=== PATIENT | male | born 1950 | race Caucasian/White ===

== ENCOUNTER 2016-10-18 21:21 | Inpatient (IN) | payer MEDICARE, OTHER ==
[2016-10-18] MEDS ORDERED: SODIUM CHLORIDE 0.9% 10 ML FLUSH FLUSH PRN (21:41)
--- NOTE | 2016-10-18 21:42 | EDPRACDOC ---
- General Information Information Source: Patient - History of Present Illness Onset: THIS MORNING HPI: C/o feeling nauseous and "not right" yesterday, then today, per , around 4pm pt suddenly couldn't get up, and c/o new left side weakness. Pt also coughed up blood today, but has hx of coughing up blood which has been evaluated without clear dx per pt. Also c/o not eating in 2 days, and drinking very little. Denies cp, sob, fever, changes in urine, BM. Supposed to take 2 lasix but has only take one today. Takes oxycodone for chronic pain but also added a vicodin from 's rx today. Pt also states he has run out of daily prednisone x 1week. BGL 201 by EMS. Med hx = Afib, HTN, CVA, CHF, DM. Pt on xarelto. SURGICAL HX = LAP BAND 3-4 YRS AGO, HERNIA, MAYRA, VENOUS ABLATION. Pt on XARELTO. Symptoms Started: Reports: Suddenly Symptoms Description: Constant Weakness: Left: Arm, Leg <Dawson Bryant - Last Filed: 10/19/16 00:45> <Heather Girard - Last Filed: 10/19/16 06:23> - General Information Chief Complaint: Generalized Weakness Stated Complaint: WEAKNESS Home Medications: Home Medications Albuterol Sulfate [Ventolin Hfa] 1 - 2 puff INH Q4H PRN 04/29/14 Atorvastatin [Lipitor 40 mg Tablet] 40 mg PO DAILY 04/29/14 Diltiazem HCl [Cardizem] 30 mg PO BID 04/29/14 Fluticasone/Salmeterol [Advair 500-50 Diskus] 1 inh INH BID 04/29/14 Insulin Aspart [Novolog Flexpen] 0 unit SQ .INSULIN PUMP 04/29/14 Isosorbide Mononitrate [Imdur] 60 mg PO DAILY 04/29/14 Magnesium Oxide [Mag-Ox] 800 mg PO BID 04/29/14 Pantoprazole Sodium [Protonix] 40 mg PO BID 04/29/14 Famotidine [Pepcid] 20 mg PO QHS 05/21/16 Latanoprost [Xalatan] 1 drop OU QHS 05/21/16 Naloxegol Oxalate [Movantik] 25 mg PO DAILY 05/21/16 HydrALAZINE (Cardiovascular) [Apresoline] 50 mg PO TID #60 05/25/16 Losartan Potassium [Cozaar] 100 mg PO DAILY #30 tab 05/25/16 Oxycodone (OxyCONTIN) Ext Rel [Oxycontin] 20 mg PO BID #60 05/25/16 POTASSIUM CHLORIDE Tablet [K-DUR 20 mEq Tablet*] 20 meq PO TID #100 tab.er.prt 05/25/16 Azelastine HCl [Astelin] 1 - 2 spray ROC DAILY 10/18/16 Driver Unknown Dose 1 tab PO .SEE COMMENTS 10/18/16 Prednisone 10 mg PO DAILY 10/18/16 Pregabalin [Lyrica] 75 mg PO BID 10/18/16 Probiotic Blend [Sandra Q] 1 tab PO BID 10/18/16 Rivaroxaban [Xarelto] 15 mg PO DAILY 10/18/16 Torsemide [Demadex] 20 mg PO QID 10/18/16 Allergies/Adverse Reactions: Allergies Allergy/AdvReac Type Severity Reaction Status Date / Time Penicillins Allergy Intermediate Rash-Genera Verified 10/19/16 00:40 lized codeine [Codeine] Allergy Mild Itching Verified 10/19/16 00:40 ED Past Medical History - Patient Medical History Neurological History: Reports: Cerebrovascular Accident (X3) Cardiac History: Reports: Atrial Fibrillation, Hypertension, Congestive Heart Failure, Hypercholesterolemia Respiratory History: Reports: Asthma, Emphysema GI/ History: Reports: Renal Disease (CKD stage III), Gastroesophageal Reflux Musculoskeletal History: Reports: Arthritis Psychological History: Reports: Substance Use Disorder (quit alcohol 9 years ago ). Denies: Depression Systemic History: Reports: Diabetes, Hypothyroidism Surgical History: Reports: Cholecystectomy, Hernia Surgery - Family Medical History Reports: Hypertension (Dad), Diabetes (Sister), Cancer (Mother) - Social Medical History Smoking Status: Former smoker Social History: Reports: Substance Use Disorder (quit alcohol 9 years ago) <Dawson Bryant - Last Filed: 10/19/16 00:45> - Physical Exam Last recorded Vital Signs: Last Vital Signs Temp 99.9 F 10/18/16 21:28 Pulse 88 10/18/16 21:28 Resp 18 10/18/16 21:28 BP 121/61 10/18/16 21:28 Pulse Ox 96 10/18/16 21:28 Oxygen Pulse Oxygen Saturation 96 O2 Device Room Air Oxygen Flow Rate Fraction of Inspired Oxygen ( FIO2) <Dawson Bryant - Last Filed: 10/19/16 00:45> - Physical Exam Constitutional: No apparent distress, Alert Oriented to: Time, Person, Place Last recorded Vital Signs: Last Vital Signs Temp 98.7 F 10/18/16 22:00 Pulse 88 10/19/16 01:28 Resp 20 10/19/16 01:28 BP 156/77 10/19/16 01:28 Pulse Ox 94 10/19/16 01:28 Oxygen Pulse Oxygen Saturation 94 O2 Device Room Air Oxygen Flow Rate Fraction of Inspired Oxygen ( FIO2) - HEENT Head: Normal Eye Exam: Normal Oropharynx: Normal Nose: No Symptoms Reported Neck: Normal - Respiratory/Cardiovascular Respiratory: Rales, Rhonchi, Wheezes. negative: Tachypnea Cardiovascular: Normal - GI Auscultation: Normal Palpation: Normal Tenderness: Non tender Velasquez's Sign: Negative - Bladder: Normal - Musculoskeletal Back: Normal Extremities: Normal. negative: Pedal Edema, Pedal Pulse - Integumentary Skin: Normal, Warm, Dry Lymphatics: Normal - Neurologic Memory Impaired: Normal Motor Function: Abnormal Mood Description: Anxious Thought: Coherent <Heather Girard - Last Filed: 10/19/16 06:23> NIH Stroke Scale Re-evaluation 1 Level of Consciousness: Alert LOC- Question: Answers Both Correctly LOC Commands: Both Task Correctly Best Gaze: Normal Visual: No Visual Loss Facial Palsy: Normal Movement Motor Arm LEFT: Drift Motor Arm RIGHT: No Drift Motor Leg LEFT: Drift Motor Leg RIGHT: No Drift Limb Ataxia: Present in Two Limbs Best Language: No Aphasia Dysarthria: Normal Extinction and Inattention: No Abnormality (Neglect) <Heather Girard - Last Filed: 10/19/16 06:23> ED Procedures - Central Line Informed of risks, benefits and alternatives described.: Yes Central Line Informed Consent Signed: Written Indication: Medication Administration, No peripheral access Line Procedure: Chlorahexadine Equipment used during procedure: Hat and Mask, Sterile Gown, Sterile Gloves Line Lumen: triple Central Line Postion: femoral (R) (ULTRASOUND GUIDED, WIRE CONFIRMED PRIOR TO DILATION) Anesthesia: Lidocaine Line Position approached and secured by standard fashion: sutured, good blood return Complications: none <Heather Girard - Last Filed: 10/19/16 06:23> - Results 10/18/16 22:14 10/18/16 23:56 - EKG EKG #1 EKG Time: 22:03 -: Yes EKG interpreted by me Rate: bpm: 87 Laughlin: RAD Rhythm: Afib Block: None ST: Nonsp Comments: new t wave inversion in V6 compared to prior ekg Comparison: 06/21/16 - Diagnostic Imaging Chest Image interpreted by: Radiologist EXAM: PORTABLE CHEST 1 VIEW COMPARISON: Chest x-ray 09/10/2016. FINDINGS: Opacity in the lower left hemithorax is compatible with an area of chronic scarring as demonstrated on prior chest CT. Ill-defined opacity in the medial aspect of the right lung base, concerning for bronchopneumonia, favored to be within the right middle lobe. No definite pleural effusions. Heart size is mildly enlarged. The patient is rotated to the left on today's exam, resulting in distortion of the mediastinal contours and reduced diagnostic sensitivity and specificity for mediastinal pathology. Atherosclerosis in the thoracic aorta. IMPRESSION: 1. Findings are concerning for probable right middle lobe bronchopneumonia. Followup PA and lateral chest X-ray is recommended in 3-4 weeks following trial of antibiotic therapy to ensure resolution and exclude underlying malignancy. 2. Chronic scarring in the left lung redemonstrated, similar to prior studies. 3. Atherosclerosis. Electronically Signed By: Marv Randolph M.D. On: 10/18/2016 23:20 - Additional Information Care of pt handed over to Dr Girard at this time. <Dawson Bryant - Last Filed: 10/19/16 00:45> - Results 10/18/16 22:14 10/18/16 23:56 WBC 10.6 xk/uL (3.8-10.8) 10/18/16 22:14 RBC 4.87 xM/uL (4.70-6.10) 10/18/16 22:14 Hgb 12.9 g/dL (14.0-18.0) L 10/18/16 22:14 Hct 39.4 % (42-52) L 10/18/16 22:14 MCV 81 fL (80-94) 10/18/16 22:14 MCH 26.5 pg (27-32) L 10/18/16 22:14 MCHC 32.8 g/dl (33-36) L 10/18/16 22:14 RDW 16.2 % (11.5-14.5) H 10/18/16 22:14 Plt Count 219 xk/uL (130-400) 10/18/16 22:14 MPV 7.5 fL (7.4-10.4) 10/18/16 22:14 Neut % (Auto) 78.2 % (45-76) H 10/18/16 22:14 Lymph % (Auto) 14.2 % (17-44) L 10/18/16 22:14 Cavalier % (Auto) 6.9 % (3-10) 10/18/16 22:14 Eos % (Auto) 0.5 % (0-5) 10/18/16 22:14 Baso % (Auto) 0.2 % (0-2) 10/18/16 22:14 Absolute Neuts (auto) 8.27 xk/uL (1.7-8.2) H 10/18/16 22:14 Absolute Lymphs (auto) 1.48 xk/uL (0.65-4.75) 10/18/16 22:14 PT 14.5 SEC (9.2-11.2) H 10/18/16 22:14 INR 1.4 10/18/16 22:14 APTT 31.6 SEC (22-35) 10/18/16 22:14 Sodium 141 mEq/L (137-146) 10/18/16 23:56 Potassium 3.5 mEq/L (3.5-5.1) 10/18/16 23:56 Chloride 102 mEq/L (98-107) 10/18/16 23:56 Carbon Dioxide 29 mMOL/L (22-33) 10/18/16 23:56 Anion Gap 14 mEq/L (8-16) 10/18/16 23:56 BUN 17 MG/DL (9-20) 10/18/16 23:56 Creatinine 1.20 MG/DL (0.66-1.25) 10/18/16 23:56 Estimated GFR (MDRD) > 60 mL/min (>=60) 10/18/16 23:56 Glucose 136 MG/DL (70-99) H 10/18/16 23:56 Calculated Osmolality 275 MOs/Kg (270-290) 10/18/16 23:56 Lactic Acid 0.9 mEq/L (0.7-2.1) 10/19/16 01:40 Calcium 8.6 MG/DL (8.4-10.2) 10/18/16 23:56 Corrected Calcium 9.7 MG/DL (8.4-10.2) 10/18/16 23:56 Total Bilirubin 3.0 MG/DL (0.2-1.3) H 10/18/16 23:56 AST 17 IU/L (17-59) 10/18/16 23:56 ALT 29 IU/L (21-72) 10/18/16 23:56 Alkaline Phosphatase 73 IU/L (50-160) 10/18/16 23:56 Troponin I 0.02 ng/mL (<.04) 10/18/16 23:56 Total Protein 5.7 G/DL (6.3-8.2) L 10/18/16 23:56 Albumin 2.9 G/DL (3.5-5.0) L 10/18/16 23:56 Lipase 62 U/L (23-300) 10/18/16 23:56 Urine Color Yellow 10/19/16 01:20 Urine Clarity Clear 10/19/16 01:20 Urine pH 6.0 (5.0-8.0) 10/19/16 01:20 Ur Specific Halsey 1.005 (1.003-1.035) 10/19/16 01:20 Urine Protein Neg (NEG/TRACE) 10/19/16 01:20 Urine Glucose (UA) Trace (NEGATIVE) 10/19/16 01:20 Urine Ketones Neg (NEGATIVE) 10/19/16 01:20 Urine Occult Blood Neg (NEG/TRACE) 10/19/16 01:20 Urine Nitrite Neg (NEGATIVE) 10/19/16 01:20 Urine Bilirubin Neg (NEGATIVE) 10/19/16 01:20 Urine Urobilinogen 2 MG/DL (0-1) H 10/19/16 01:20 Ur Leukocyte Esterase Neg (NEGATIVE) 10/19/16 01:20 Urine RBC 0-2 (0-2) 10/19/16 01:20 Urine WBC 0-2 (0-2) 10/19/16 01:20 Urine Bacteria Few (NEG/FEW) 10/19/16 01:20 Microbiology 10/18/16 22:27 Influenza Type A Antigen Screen - Final Nasal Washing/Aspirate Or Swab NEGATIVE Please note: A NEGATIVE result does not exclude an influenza virus infection. It is a presumptive result and, if required, confirmation should be done using either a virus culture or an FDA-cleared influenza A&B molecular assay. ("NORMAL" value = "NEGATIVE".) Influenza Type B Antigen Screen - Final NEGATIVE Please note: A NEGATIVE result does not exclude an influenza virus infection. It is a presumptive result and, if required, confirmation should be done using either a virus culture or an FDA-cleared influenza A&B molecular assay. ("NORMAL" value = "NEGATIVE".) Lab Results 10/19/16 10/19/16 10/18/16 01:40 01:20 23:56 WBC RBC Hgb Hct MCV MCH MCHC RDW Plt Count MPV Neut % (Auto) Lymph % (Auto) Cavalier % (Auto) Eos % (Auto) Baso % (Auto) Absolute Neuts (auto) Absolute Lymphs (auto) PT INR APTT Sodium 141 Potassium 3.5 Chloride 102 Carbon Dioxide 29 Anion Gap 14 BUN 17 Creatinine 1.20 Estimated GFR (MDRD) > 60 Glucose 136 H Calculated Osmolality 275 Lactic Acid 0.9 Calcium 8.6 Corrected Calcium 9.7 Total Bilirubin 3.0 H AST 17 ALT 29 Alkaline Phosphatase 73 Troponin I 0.02 Total Protein 5.7 L Albumin 2.9 L Lipase 62 Urine Color Yellow Urine Clarity Clear Urine pH 6.0 Ur Specific Halsey 1.005 Urine Protein Neg Urine Glucose (UA) Trace Urine Ketones Neg Urine Occult Blood Neg Urine Nitrite Neg Urine Bilirubin Neg Urine Urobilinogen 2 H Ur Leukocyte Esterase Neg Urine RBC 0-2 Urine WBC 0-2 Urine Bacteria Few 10/18/16 10/18/16 22:14 22:14 WBC 10.6 RBC 4.87 Hgb 12.9 L Hct 39.4 L MCV 81 MCH 26.5 L MCHC 32.8 L RDW 16.2 H Plt Count 219 MPV 7.5 Neut % (Auto) 78.2 H Lymph % (Auto) 14.2 L Cavalier % (Auto) 6.9 Eos % (Auto) 0.5 Baso % (Auto) 0.2 Absolute Neuts (auto) 8.27 H Absolute Lymphs (auto) 1.48 PT 14.5 H INR 1.4 APTT 31.6 Sodium Potassium Chloride Carbon Dioxide Anion Gap BUN Creatinine Estimated GFR (MDRD) Glucose Calculated Osmolality Lactic Acid Calcium Corrected Calcium Total Bilirubin AST ALT Alkaline Phosphatase Troponin I Total Protein Albumin Lipase Urine Color Urine Clarity Urine pH Ur Specific Halsey Urine Protein Urine Glucose (UA) Urine Ketones Urine Occult Blood Urine Nitrite Urine Bilirubin Urine Urobilinogen Ur Leukocyte Esterase Urine RBC Urine WBC Urine Bacteria - Diagnostic Imaging Chest Patient Name: JUNAID SORIANO LOC: ED : 1950 AGE: 65 Order Date:10/19/16 Date of Service: Report # [id number] Ord Physician: Heather Girard MD Exam # [id number] Emergency Physician: Heather Girard MD Exam(s): [id number] CT/CT CHEST W/ CM CLINICAL DATA: 65-year-old male with left-sided weakness and hemoptysis, nausea and vomiting. EXAM: CT ABDOMEN AND PELVIS WITH CONTRAST TECHNIQUE: Multidetector CT imaging of the abdomen and pelvis was performed using the standard protocol following bolus administration of intravenous contrast. CONTRAST: 100 cc Isovue 370 COMPARISON: CT dated 09/25/2016 FINDINGS: There is a small left pleural effusion. There is associated partial compressive atelectasis of the left lung base versus pneumonia. There are patchy areas of nodular and ground-glass airspace opacity involving the right upper and right lower lobes most compatible with pneumonia. There is no pneumothorax. The central airways are patent. The thoracic aorta appears unremarkable. The central pulmonary arteries appear patent. There is no cardiomegaly or pericardial effusion. Right hilar adenopathy measures 12 mm in short axis. Top-normal subcarinal lymph nodes noted. Gastroesophageal reflux noted within esophagus. There is no thyroid nodule. No axillary adenopathy. The chest wall soft tissues appear unremarkable. No intra-abdominal free air or free fluid. Cholecystectomy. The liver, pancreas, spleen, and the adrenal glands appear unremarkable. There is mild bilateral renal atrophy. There is no hydronephrosis on either side. The visualized ureters and urinary bladder appear unremarkable. The prostate and seminal vesicles are grossly unremarkable. A gastric lap band is noted with reservoir in the right anterior abdominal wall. There is moderate stool throughout the colon with no evidence of bowel obstruction or inflammation. The appendix is not visualized, likely surgically absent. The abdominal aorta and IVC appear unremarkable. No portal venous gas identified. There is no adenopathy. Midline vertical anterior pelvic wall incisional scar. There is mild degenerative changes of the spine. No acute fracture. IMPRESSION: Multi focal pneumonia and a small left pleural effusion. Clinical correlation and follow-up to resolution recommended. No acute intra-abdominal or pelvic pathology. Electronically Signed By: Yinka Hudson M.D. On: 10/19/2016 01:01 Electronically Signed By: Yinka Hudson MD Electronically Signed Date/Time: 104 Dictate Date/Time: 10/19/16 005 Technologist: Annemarie Pelaez Transcribed By: Dominic Transcribed Date/Time: 10/19/16 0101 Abdomen Image interpreted by: , Radiologist Patient Name: JUNAID SORIANO Courtesy Copy to: Diagnostic Imaging Report [facility] [address] [facility] [id number] [phone] Diagnostic Imaging Services Courtesy Copy to: Diagnostic Imaging Report Patient Name: JUNAID SORIANO LOC: ED : 1950 AGE: 65 Order Date:10/18/16 Date of Service: Report # [id number] Ord Physician: Heather Girard MD Exam # [id number] Emergency Physician: Heather Girard MD Exam(s): [id number] CT/CT ABD-PELV W/IV CM CLINICAL DATA: 65-year-old male with left-sided weakness and hemoptysis, nausea and vomiting. EXAM: CT ABDOMEN AND PELVIS WITH CONTRAST TECHNIQUE: Multidetector CT imaging of the abdomen and pelvis was performed using the standard protocol following bolus administration of intravenous contrast. CONTRAST: 100 cc Isovue 370 COMPARISON: CT dated 09/25/2016 FINDINGS: There is a small left pleural effusion. There is associated partial compressive atelectasis of the left lung base versus pneumonia. There are patchy areas of nodular and ground-glass airspace opacity involving the right upper and right lower lobes most compatible with pneumonia. There is no pneumothorax. The central airways are patent. The thoracic aorta appears unremarkable. The central pulmonary arteries appear patent. There is no cardiomegaly or pericardial effusion. Right hilar adenopathy measures 12 mm in short axis. Top-normal subcarinal lymph nodes noted. Gastroesophageal reflux noted within esophagus. There is no thyroid nodule. No axillary adenopathy. The chest wall soft tissues appear unremarkable. No intra-abdominal free air or free fluid. Cholecystectomy. The liver, pancreas, spleen, and the adrenal glands appear unremarkable. There is mild bilateral renal atrophy. There is no hydronephrosis on either side. The visualized ureters and urinary bladder appear unremarkable. The prostate and seminal vesicles are grossly unremarkable. A gastric lap band is noted with reservoir in the right anterior abdominal wall. There is moderate stool throughout the colon with no evidence of bowel obstruction or inflammation. The appendix is not visualized, likely surgically absent. The abdominal aorta and IVC appear unremarkable. No portal venous gas identified. There is no adenopathy. Midline vertical anterior pelvic wall incisional scar. There is mild degenerative changes of the spine. No acute fracture. IMPRESSION: Multi focal pneumonia and a small left pleural effusion. Clinical correlation and follow-up to resolution recommended. No acute intra-abdominal or pelvic pathology. Electronically Signed By: Yinka Hudson M.D. On: 10/19/2016 01:01 Electronically Signed By: Yinka Hudson MD Electronically Signed Date/Time: 104 Dictate Date/Time: 10/19/16 0051 Technologist: Annemarie Pelaez Transcribed By: Dominic Transcribed Date/Time: 10/19/16 0101 Head Image interpreted by: , Radiologist Patient Name: JUNAID SORIANO LOC: ED : 1950 AGE: 65 Order Date:10/18/16 Date of Service: Report # [id number] Ord Physician: Dawson Bryant Exam # [id number] Emergency Physician: Heather Girard MD Exam(s): [id number] CT/CT HEAD W/O CM CLINICAL DATA: 65-year-old male with left-sided weakness EXAM: CT HEAD WITHOUT CONTRAST TECHNIQUE: Contiguous axial images were obtained from the base of the skull through the vertex without intravenous contrast. COMPARISON: CT dated 03/20/2015 and MRI dated 03/21/2015 FINDINGS: The ventricles are dilated and the sulci are prominent compatible with age-related atrophy. Periventricular and deep white matter hypodensities represent chronic microvascular ischemic changes. Old left parietal infarct and encephalomalacia. There is no intracranial hemorrhage. No mass effect or midline shift identified. There is apparent high attenuation of the right MCA similar to the study dated 03/20/2015. The visualized paranasal sinuses and mastoid air cells are well aerated. The calvarium is intact. IMPRESSION: No acute intracranial hemorrhage. Age-related atrophy and chronic microvascular ischemic disease. Left posterior parietal old infarct. If symptoms persist and there are no contraindications, MRI may provide better evaluation if clinically indicated. Electronically Signed By: Yinka Hudson M.D. On: 10/19/2016 00:49 Electronically Signed By: Yinka Hudson MD Electronically Signed Date/Time: Dictate Date/Time: 10/19/1643 Technologist: Annemarie Pelaez Transcribed By: Dominic Transcribed Date/Time: 10/19/169 - Additional Information CVA (IF PRESENT) IS SUBACUTE, PT NOT TPA CANDIDATE BASED UPON MULTIPLE FACTORS. PT ON XARELTO, ? IF ASA INDICATED WITH HEMOPTYSIS / HEMATEMESIS. <Heather Girard - Last Filed: 10/19/16 06:23> <Dawson Bryant - Last Filed: 10/19/16 00:45> - Departure Disposition: Admit IP To This Hospital Decision to Admit Time: 02:12 Decision to admit date: 10/19/16 Decision to admit: from ED - Physician Consulted Hospitalist Time Called: 02:11 Provider Called: Romulo Johns Time Chef Under Returned Call: 02:11 <Heather Girard - Last Filed: 10/19/16 06:23> - Departure Condition: Stable Final Diagnosis: Aspiration pneumonia, Left-sided weakness, Hemoptysis, Anticoagulant long-term use
[2016-10-18] MEDS ORDERED: NS 1,000 ML IV ONE ×2 (22:03)
[2016-10-18] MEDS ORDERED: DIATRIZOATE MEGLMINE/SODIUM 30 ML BOTTLE PO ONE (22:19)
[2016-10-18 22:29] LABS: AUTOMATED BASOPHIL 0.2 % (0-2); AUTOMATED EOSINOPHIL 0.5 % (0-5); AUTOMATED LYMPH 14.2 % (17-44); AUTOMATED MONOCYTE 6.9 % (3-10); AUTOMATED NEUTROPHIL 78.2 % (45-76); MPV 7.5 fL (7.4-10.4)
[2016-10-18 22:38] LABS: PARTIAL THROMB. TIME 31.6 SEC (22-35); PT-INR 1.4
[2016-10-18] MEDS ORDERED: Pharmacy Review for Metformin - IV Contrast Given SCH ×2 (23:00)
--- NOTE | 2016-10-18 23:23 | DIRPT ---
CLINICAL DATA: 65-year-old male with nausea and left-sided weakness. EXAM: PORTABLE CHEST 1 VIEW COMPARISON: Chest x-ray 09/10/2016. FINDINGS: Opacity in the lower left hemithorax is compatible with an area of chronic scarring as demonstrated on prior chest CT. Ill-defined opacity in the medial aspect of the right lung base, concerning for bronchopneumonia, favored to be within the right middle lobe. No definite pleural effusions. Heart size is mildly enlarged. The patient is rotated to the left on today's exam, resulting in distortion of the mediastinal contours and reduced diagnostic sensitivity and specificity for mediastinal pathology. Atherosclerosis in the thoracic aorta. IMPRESSION: 1. Findings are concerning for probable right middle lobe bronchopneumonia. Followup PA and lateral chest X-ray is recommended in 3-4 weeks following trial of antibiotic therapy to ensure resolution and exclude underlying malignancy. 2. Chronic scarring in the left lung redemonstrated, similar to prior studies. 3. Atherosclerosis. Electronically Signed By: Marv Randolph M.D. On: 10/18/2016 23:20
[2016-10-19 00:16] LABS: BLOOD UREA NITROGEN 17 MG/DL (9-20); CALC CORRECTED 9.7 MG/DL (8.4-10.2); CALCIUM 8.6 MG/DL (8.4-10.2); CALCULATED OSMOLALITY 275 MOs/Kg (270-290); CHLORIDE 102 mEq/L (98-107); GLUCOSE 136 MG/DL (70-99); SODIUM LEVEL 141 mEq/L (137-146); TOTAL PROTEIN 5.7 G/DL (6.3-8.2)
[2016-10-19] MEDS ORDERED: IMIPENEM CILASTATIN 500 MG in D5W 100 ML IV ONE (00:44)
--- NOTE | 2016-10-19 00:52 | DIRPT ---
CLINICAL DATA: 65-year-old male with left-sided weakness EXAM: CT HEAD WITHOUT CONTRAST TECHNIQUE: Contiguous axial images were obtained from the base of the skull through the vertex without intravenous contrast. COMPARISON: CT dated 03/20/2015 and MRI dated 03/21/2015 FINDINGS: The ventricles are dilated and the sulci are prominent compatible with age-related atrophy. Periventricular and deep white matter hypodensities represent chronic microvascular ischemic changes. Old left parietal infarct and encephalomalacia. There is no intracranial hemorrhage. No mass effect or midline shift identified. There is apparent high attenuation of the right MCA similar to the study dated 03/20/2015. The visualized paranasal sinuses and mastoid air cells are well aerated. The calvarium is intact. IMPRESSION: No acute intracranial hemorrhage. Age-related atrophy and chronic microvascular ischemic disease. Left posterior parietal old infarct. If symptoms persist and there are no contraindications, MRI may provide better evaluation if clinically indicated. Electronically Signed By: Yinka Hudson M.D. On: 10/19/2016 00:49
[2016-10-19] MEDS ORDERED: Pharmacy Review for Metformin - IV Contrast Given SCH (01:00)
--- NOTE | 2016-10-19 01:04 | DIRPT ---
CLINICAL DATA: 65-year-old male with left-sided weakness and hemoptysis, nausea and vomiting. EXAM: CT ABDOMEN AND PELVIS WITH CONTRAST TECHNIQUE: Multidetector CT imaging of the abdomen and pelvis was performed using the standard protocol following bolus administration of intravenous contrast. CONTRAST: 100 cc Isovue 370 COMPARISON: CT dated 09/25/2016 FINDINGS: There is a small left pleural effusion. There is associated partial compressive atelectasis of the left lung base versus pneumonia. There are patchy areas of nodular and ground-glass airspace opacity involving the right upper and right lower lobes most compatible with pneumonia. There is no pneumothorax. The central airways are patent. The thoracic aorta appears unremarkable. The central pulmonary arteries appear patent. There is no cardiomegaly or pericardial effusion. Right hilar adenopathy measures 12 mm in short axis. Top-normal subcarinal lymph nodes noted. Gastroesophageal reflux noted within esophagus. There is no thyroid nodule. No axillary adenopathy. The chest wall soft tissues appear unremarkable. No intra-abdominal free air or free fluid. Cholecystectomy. The liver, pancreas, spleen, and the adrenal glands appear unremarkable. There is mild bilateral renal atrophy. There is no hydronephrosis on either side. The visualized ureters and urinary bladder appear unremarkable. The prostate and seminal vesicles are grossly unremarkable. A gastric lap band is noted with reservoir in the right anterior abdominal wall. There is moderate stool throughout the colon with no evidence of bowel obstruction or inflammation. The appendix is not visualized, likely surgically absent. The abdominal aorta and IVC appear unremarkable. No portal venous gas identified. There is no adenopathy. Midline vertical anterior pelvic wall incisional scar. There is mild degenerative changes of the spine. No acute fracture. IMPRESSION: Multi focal pneumonia and a small left pleural effusion. Clinical correlation and follow-up to resolution recommended. No acute intra-abdominal or pelvic pathology. Electronically Signed By: Yinka Hudson M.D. On: 10/19/2016 01:01
[2016-10-19 01:39] LABS: LEUKOCYTES/URINE NEG (NEGATIVE); NITRITE/URINE NEG (NEGATIVE); RBC/URINE 0-2 (0-2); URINE OCCULT BLOOD NEG (NEG/TRACE); WBC/URINE 0-2 (0-2)
[2016-10-19] MEDS ORDERED: FENTANYL 100 MCG/2 ML VIAL IV ONE (02:44)
--- NOTE | 2016-10-19 02:50 | HISTPHYS ---
- Chief Complaint weakness, not feeling well - History of Present Illness PRIMARY CARE PROVIDER: Dr. Ortiz LYE MACHINE OPERATOR: Dr. Parisi CASHIER OR CHECKER STOCK CLERK: Dr. Olmstead HPI: The patient is a 65 yo man with chronic lung disease with BOOP, history of stroke, hypertension, atrial fibrillation, who presents with several complaints. The patient reports he felt fine until yesterday, when he started feeling sick, so he stayed in bed all day. He did not feel like he had abdominal pain, but he notes that he ate fast and then vomited. Yesterday and today he was coughing up blood, not vomiting up blood. Became more short of breath. Gets pneumonia frequently. Has been off prednisone for 1.5 weeks, but he usually takes it chronically from his recruiter. Used to be on oxygen, but nurse practitioner said the only time he needed oxygen was when he was walking. Coughing is not productive of green/yellow sputum. Onset: About 2 days ago. Duration: intermittent. Character: breathing is worse. Does not feel well. Alleviated by: Nothing. Exacerbated by: exertion. Associated Symptoms: Coughing. Wheezing is at baseline. Shortness of breath slightly worse over last several days. Fever yesterday but no chills. No diaphoresis. Treatments: none at home except usual medications. His additional complaint is left sided weakness, which was present when he woke up yesterday morning, 10/18/16. He had pain in both legs and couldn't move them. His left leg was much worse than the right. Alpha like he could not sit back up. [employer] prudence helped him up, next time had son-in law help get him up. He is now able to move his right leg well, but is still having weakness in his left leg. He is unable to get up by himself now. The day before he was walking without difficulty. He also notes that his left arm has been weak since yesterday morning. Onset: woke up with weakness on 10/18/16 (yesterday morning, almost 24 hours ago ). Duration: right leg improved quickly. Left leg and left arm still weak. Location: Left leg and left arm. Radiation: none. Character: weakness, difficulty moving leg and arm. Alleviated by: Nothing. Exacerbated by: Nothing. Associated Symptoms: No headache. Left leg is numb and left fingers numb. He noticed his hands were swollen. No drooling, slurred speech, or confusion. Treatments: none at home except usual medications. - Medical History Cardiac History: Reports: Atrial Fibrillation, Hypertension, Congestive Heart Failure, Hypercholesterolemia Respiratory History: Reports: COPD, Emphysema, Other (BOOP. OBSTRUCTIVE SLEEP APNEA ON CPAP.) GI/ History: Reports: Renal Disease (CKD stage III), Gastroesophageal Reflux Musculoskeletal History: Reports: Arthritis Systemic History: Reports: Diabetes (Type 2, on insulin.), Hypothyroidism Neurological History: Reports: Cerebrovascular Accident (X3) Psychological History: Denies: Depression - Surgical History Reports: Cholecystectomy, Hernia Surgery, Other (Lap band surgery.) - Medictions/Allergies Allergies Penicillins Allergy (Intermediate, Verified 10/19/16 00:40) Rash-Generalized codeine [Codeine] Allergy (Mild, Verified 10/19/16 00:40) Itching Current Medication List: Reviewed Home Medications Albuterol Sulfate [Ventolin Hfa] 1 - 2 puff INH Q4H PRN 04/29/14 Atorvastatin [Lipitor 40 mg Tablet] 40 mg PO DAILY 04/29/14 Diltiazem HCl [Cardizem] 30 mg PO BID 04/29/14 Fluticasone/Salmeterol [Advair 500-50 Diskus] 1 inh INH BID 04/29/14 Insulin Aspart [Novolog Flexpen] 0 unit SQ .INSULIN PUMP 04/29/14 Isosorbide Mononitrate [Imdur] 60 mg PO DAILY 04/29/14 Magnesium Oxide [Mag-Ox] 800 mg PO BID 04/29/14 Pantoprazole Sodium [Protonix] 40 mg PO BID 04/29/14 Famotidine [Pepcid] 20 mg PO QHS 05/21/16 Latanoprost [Xalatan] 1 drop OU QHS 05/21/16 Naloxegol Oxalate [Movantik] 25 mg PO DAILY 05/21/16 HydrALAZINE (Cardiovascular) [Apresoline] 50 mg PO TID #60 05/25/16 Losartan Potassium [Cozaar] 100 mg PO DAILY #30 tab 05/25/16 Oxycodone (OxyCONTIN) Ext Rel [Oxycontin] 20 mg PO BID #60 05/25/16 POTASSIUM CHLORIDE Tablet [K-DUR 20 mEq Tablet*] 20 meq PO TID #100 tab.er.prt 05/25/16 Azelastine HCl [Astelin] 1 - 2 spray ROC DAILY 10/18/16 [place] Unknown Dose 1 tab PO .SEE COMMENTS 10/18/16 Prednisone 10 mg PO DAILY 10/18/16 Pregabalin [Lyrica] 75 mg PO BID 10/18/16 Probiotic Blend [Sandra Q] 1 tab PO BID 10/18/16 Rivaroxaban [Xarelto] 15 mg PO DAILY 10/18/16 Torsemide [Demadex] 20 mg PO QID 10/18/16 - Family History Reports: Hypertension (Dad), Diabetes (Sister), Cancer (Mother) - Social History Smoking Status: Former smoker Social History: Denies: Alcohol Use (quit alcohol 9 years ago), Substance Use Disorder - Review of Systems GENERAL: Fever yesterday but no chills. No diaphoresis. Positive for fatigue/ malaise. HEENT: No ear pain or discharge. No nasal discharge or bleeding. No throat pain or swelling. No eye eye redness. Sometimes has left eye pain. RESPIRATORY: Coughing. Wheezing is at baseline. Shortness of breath slightly worse over last several days. CARDIOVASCULAR: No chest pain or palpitations. GI: Nausea. Vomiting x 1. No abdominal pain, nausea, diarrhea, constipation, or bloody stool. NEUROLOGICAL: No headache. Positive for left sided weakness. Numbness. INTEGUMENT: no rashes, itching, or lesions. LYMPHATIC SYSTEM: no lymph node swelling or pain. MUSCULOSKELETAL: Except for left leg pain, no new pain or joint swelling. GENITOURINARY: No dysuria or hematuria. ENDOCRINE: No polyuria or polydipsia. HEME: No chronic anemia, bleeding, or easy bruising. - Physical Exam Vital Signs: Initial Vitals Temperature 99.9 F 10/18/16 21:28 Pulse Rate 88 10/18/16 21:28 Respiratory Rate 18 10/18/16 21:28 Blood Pressure 121/61 10/18/16 21:28 Pulse Oxygen Saturation 96 10/18/16 21:28 Vital Signs - 24 hr 10/18/16 10/18/16 10/18/16 21:28 22:00 23:00 Temperature 99.9 F 98.7 F Pulse Rate 88 95 75 Respiratory 18 20 20 Rate Blood Pressure 121/61 101/59 L 137/72 Pulse Oxygen 96 93 93 Saturation 10/18/16 10/19/16 23:25 01:28 Temperature Pulse Rate 69 88 Respiratory 20 20 Rate Blood Pressure 146/75 156/77 Pulse Oxygen 94 94 Saturation Weight: 111 kg Height: 5 feet 7 inches BMI: 38.4 - Other Exam Other Exam Findings: GENERAL: Ill-appearing, morbidly obese, in acute distress. HEENT: Normocephalic except forehead with bony prominences, atraumatic; pupils equal and round. Nares patent, without discharge or bleeding. No oropharyngeal lesions or erythema. Mucous membranes are dry. NECK: is supple, no masses, trachea midline. Large neck circumference. RESPIRATORY: Clear to auscultation bilaterally. Chest wall movements are symmetric. No use of accessory muscles to breathe. Intermittent tachypnea. No rales, rhonchi. Bilateral wheezing. Decreased breath sounds bilaterally. CARDIOVASCULAR: Normal S1, S2. Murmur 2/6 systolic. No rubs, or gallops. PMI non -displaced. Carotids: no carotid bruits. No bradycardia or tachycardia. DP pulses 2+ bilaterally. GI: soft, nontender, obese, non-distended, normal active bowel sounds. No hepatosplenomegaly. Lap band palpated under skin in upper abdomen. No CVA tenderness. INTEGUMENT: Clean, dry, and intact. No rashes. Hyperpigmentation of legs. Small scars and superficial abrasions on legs. MUSCULOSKELETAL: Clubbing. No cyanosis. Edema: 1+ lower extremity edema bilaterally. NEUROLOGICAL: Cranial nerves 2-12 grossly intact. Motor 5/5 in right upper extremity, 4-/5 in right lower extremity, 3/5 in left upper extremity, and 2+/5 in left lower extremity. Poor scrap breaker strength on left. Reflexes: 2+ bilaterally. Babinski: toes downgoing bilaterally. Intact Finger to nose on right, unable on left. Sensory grossly intact to light touch. Intact rapid alternating movements on right, unable on left. No pronator drift on right, pronator drift on left. PSYCHIATRIC: Fully oriented. Irritable affect. LYMPHATIC: No cervical lymphadenopathy. No supraclavicular lymphadenopathy. - Lab Results Laboratory Results - last 24 hr 10/18/16 10/18/16 10/18/16 22:14 22:14 23:56 WBC 10.6 RBC 4.87 Hgb 12.9 L Hct 39.4 L MCV 81 MCH 26.5 L MCHC 32.8 L RDW 16.2 H Plt Count 219 MPV 7.5 Neut % (Auto) 78.2 H Lymph % (Auto) 14.2 L [place] % (Auto) 6.9 Eos % (Auto) 0.5 Baso % (Auto) 0.2 Absolute Neuts (auto) 8.27 H Absolute Lymphs (auto) 1.48 PT 14.5 H INR 1.4 APTT 31.6 Sodium 141 Potassium 3.5 Chloride 102 Carbon Dioxide 29 Anion Gap 14 BUN 17 Creatinine 1.20 Estimated GFR (MDRD) > 60 Glucose 136 H Calculated Osmolality 275 Lactic Acid Calcium 8.6 Corrected Calcium 9.7 Total Bilirubin 3.0 H AST 17 ALT 29 Alkaline Phosphatase 73 Troponin I 0.02 Total Protein 5.7 L Albumin 2.9 L Lipase 62 Urine Color Urine Clarity Urine pH Ur Specific [place] Urine Protein Urine Glucose (UA) Urine Ketones Urine Occult Blood Urine Nitrite Urine Bilirubin Urine Urobilinogen Ur Leukocyte Esterase Urine RBC Urine WBC Urine Bacteria 10/19/16 10/19/16 01:20 01:40 WBC RBC Hgb Hct MCV MCH MCHC RDW Plt Count MPV Neut % (Auto) Lymph % (Auto) [place] % (Auto) Eos % (Auto) Baso % (Auto) Absolute Neuts (auto) Absolute Lymphs (auto) PT INR APTT Sodium Potassium Chloride Carbon Dioxide Anion Gap BUN Creatinine Estimated GFR (MDRD) Glucose Calculated Osmolality Lactic Acid 0.9 Calcium Corrected Calcium Total Bilirubin AST ALT Alkaline Phosphatase Troponin I Total Protein Albumin Lipase Urine Color Yellow Urine Clarity Clear Urine pH 6.0 Ur Specific [place] 1.005 Urine Protein Neg Urine Glucose (UA) Trace Urine Ketones Neg Urine Occult Blood Neg Urine Nitrite Neg Urine Bilirubin Neg Urine Urobilinogen 2 H Ur Leukocyte Esterase Neg Urine RBC 0-2 Urine WBC 0-2 Urine Bacteria Few - Diagnostic Findings EK bpm. Atrial fibrillation. Chest x-ray, viewed personally: EXAM: PORTABLE CHEST 1 VIEW COMPARISON: Chest x-ray 09/10/2016. FINDINGS: Opacity in the lower left hemithorax is compatible with an area of chronic scarring as demonstrated on prior chest CT. Ill-defined opacity in the medial aspect of the right lung base, concerning for bronchopneumonia, favored to be within the right middle lobe. No definite pleural effusions. Heart size is mildly enlarged. The patient is rotated to the left on today's exam, resulting in distortion of the mediastinal contours and reduced diagnostic sensitivity and specificity for mediastinal pathology. Atherosclerosis in the thoracic aorta. IMPRESSION: 1. Findings are concerning for probable right middle lobe bronchopneumonia. Followup PA and lateral chest X-ray is recommended in 3-4 weeks following trial of antibiotic therapy to ensure resolution and exclude underlying malignancy. 2. Chronic scarring in the left lung redemonstrated, similar to prior studies. 3. Atherosclerosis. CT chest, abdomen/pelvis: EXAM: CT CHEST, ABDOMEN AND PELVIS WITH CONTRAST TECHNIQUE: Multidetector CT imaging of the abdomen and pelvis was performed using the standard protocol following bolus administration of intravenous contrast. CONTRAST: 100 cc Isovue 370 COMPARISON: CT dated 09/25/2016 FINDINGS: There is a small left pleural effusion. There is associated partial compressive atelectasis of the left lung base versus pneumonia. There are patchy areas of nodular and ground-glass airspace opacity involving the right upper and right lower lobes most compatible with pneumonia. There is no pneumothorax. The central airways are patent. The thoracic aorta appears unremarkable. The central pulmonary arteries appear patent. There is no cardiomegaly or pericardial effusion. Right hilar adenopathy measures 12 mm in short axis. Top-normal subcarinal lymph nodes noted. Gastroesophageal reflux noted within esophagus. There is no thyroid nodule. No axillary adenopathy. The chest wall soft tissues appear unremarkable. No intra-abdominal free air or free fluid. Cholecystectomy. The liver, pancreas, spleen, and the adrenal glands appear unremarkable. There is mild bilateral renal atrophy. There is no hydronephrosis on either side. The visualized ureters and urinary bladder appear unremarkable. The prostate and seminal vesicles are grossly unremarkable. A gastric lap band is noted with reservoir in the right anterior abdominal wall. There is moderate stool throughout the colon with no evidence of bowel obstruction or inflammation. The appendix is not visualized, likely surgically absent. The abdominal aorta and IVC appear unremarkable. No portal venous gas identified. There is no adenopathy. Midline vertical anterior pelvic wall incisional scar. There is mild degenerative changes of the spine. No acute fracture. IMPRESSION: Multi focal pneumonia and a small left pleural effusion. Clinical correlation and follow-up to resolution recommended. No acute intra-abdominal or pelvic pathology. Head CT: EXAM: CT HEAD WITHOUT CONTRAST TECHNIQUE: Contiguous axial images were obtained from the base of the skull through the vertex without intravenous contrast. COMPARISON: CT dated 03/20/2015 and MRI dated 03/21/2015 FINDINGS: The ventricles are dilated and the sulci are prominent compatible with age-related atrophy. Periventricular and deep white matter hypodensities represent chronic microvascular ischemic changes. Old left parietal infarct and encephalomalacia. There is no intracranial hemorrhage. No mass effect or midline shift identified. There is apparent high attenuation of the right MCA similar to the study dated 03/20/2015. The visualized paranasal sinuses and mastoid air cells are well aerated. The calvarium is intact. IMPRESSION: No acute intracranial hemorrhage. Age-related atrophy and chronic microvascular ischemic disease. Left posterior parietal old infarct. If symptoms persist and there are no contraindications, MRI may provide better evaluation if clinically indicated. - Assessment (1) CVA (cerebral vascular accident) I63.9 - CEREBRAL INFARCTION, UNSPECIFIED Acute Present on Admission: Yes Plan: CVA order set. MRI head and Ultrasound of carotids in the AM. NPO until speech therapy evaluation. Physical therapy and occupational therapy evaluations. Neuro checks q 4 hours. Hold blood pressure medications during initial phase of acute stroke. Telemetry. No aspirin because patient is on Xarelto. Continue statin. Check lipid levels. NOTE: TPA NOT GIVEN. NO TPA DUE TO: patient outside of time window. (2) Aspiration pneumonia J69.0 - PNEUMONITIS DUE TO INHALATION OF FOOD AND VOMIT Acute Present on Admission: Yes Noted on CT of the chest. Plan: Cultures ordered. IV imipenem due to patient's penicillin allergy. 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 Started having hemoptysis, which per records is typical of his flare ups and episodes of pneumonia. Has not had any prednisone in 1.5 weeks (has been on it for years per patient). Plan: IV methylprednisolone. (4) Hemoptysis R04.2 - HEMOPTYSIS Acute Present on Admission: Yes Started having hemoptysis, which per records is typical of his flare ups and episodes of pneumonia. Has not had any further episodes. Plan: Monitor for further episodes. Consider holding Xarelto if he has further episodes. (5) Left-sided weakness M62.81 - MUSCLE WEAKNESS (GENERALIZED) Acute Present on Admission: Yes Left leg weakness is fairly severe and the left arm weakness is also present. Suspect that he has a stroke. Patient is very concerned about whether or not he will regain strength in his left arm and leg. Plan: Physical and occupational therapy. (6) Obstructive sleep apnea G47.33 - OBSTRUCTIVE SLEEP APNEA (ADULT) (PEDIATRIC) Acute Present on Admission: Yes On CPAP at home Plan: CPAP at night. Use home settings when known. (7) Atrial fibrillation I48.91 - UNSPECIFIED ATRIAL FIBRILLATION Chronic Present on Admission: Yes Qualifiers: Atrial fibrillation type: chronic Qualified Code(s): I48.2 - Chronic atrial fibrillation Plan: Continue Xarelto if patient has no further episodes of hemoptysis. Continue rate-control with antihypertensives after initial, acute phase of stroke has resolved. May need to restart diltiazem earlier if heart rate is high. (8) Type 2 diabetes mellitus with diabetic polyneuropathy E11.42 - TYPE 2 DIABETES MELLITUS WITH DIABETIC POLYNEUROPATHY Acute Present on Admission: Yes Qualifiers: Diabetes mellitus group home insulin use: with group home use Qualified Code( s): E11.42 - Type 2 diabetes mellitus with diabetic polyneuropathy; Z79.4 - FDC (current) use of insulin Patient has type 2 diabetes but uses an insulin pump. Plan: Stop insulin pump. Give long-acting Levemir while in hospital. Check fingerstick blood sugars q ac and hs. Sliding scale insulin. Ordered A1c and urine microalbumin. (9) Hyperbilirubinemia E80.6 - OTHER DISORDERS OF BILIRUBIN METABOLISM Acute Present on Admission: Yes Elevated total bilirubin on admission. Plan: Recheck labs. - Plan In summary, this patient is acutely and critically ill. The patient requires treatment of vital organ failure and measures to prevent further life- threatening deterioration of condition. I have spent 65 min in the critical care of this patient. Case Care Discussed with: Patient, Family, Nursing Staff Critical Care: Yes Code: 291 NIH Stroke Scale Re-evaluation 1 Level of Consciousness: Alert LOC- Question: Answers Both Correctly LOC Commands: Both Task Correctly Best Gaze: Normal Visual: No Visual Loss Facial Palsy: Normal Movement Motor Arm LEFT: Drift Motor Arm RIGHT: No Drift Motor Leg LEFT: Drift Motor Leg RIGHT: No Drift Limb Ataxia: Present in Two Limbs Sensory: Normal Best Language: No Aphasia Dysarthria: Normal Extinction and Inattention: No Abnormality (Neglect) Score: 4out of42
[2016-10-19] MEDS ORDERED: ACETAMINOPHEN 325 MG SUPP PR PRN (04:53)
[2016-10-19] MEDS ORDERED: ACETAMINOPHEN 325 MG/TAB TABLET PO PRN (04:53)
[2016-10-19] MEDS ORDERED: BISACODYL 5 MG TAB PO PRN (04:53)
[2016-10-19] MEDS ORDERED: ONDANSETRON HCL 4 MG/2 ML VIAL IV PRN (04:53)
[2016-10-19] MEDS ORDERED: TEMAZEPAM 15 MG CAP PO PRN (04:53)
[2016-10-19] MEDS ORDERED: SIMETHICONE 80 MG TAB PO PRN (04:53)
[2016-10-19] MEDS ORDERED: SENNA CONCENTRATE TAB PO PRN (04:53)
[2016-10-19] MEDS ORDERED: PROMETHAZINE 25 MG/ML VIAL IV PRN (04:53)
[2016-10-19] MEDS ORDERED: GUAIFEN 100 MG-DEXTROMETH 10 MG PER 5 ML PO PRN (04:53)
[2016-10-19] MEDS ORDERED: BENZONATATE 100 MG PERLES PO PRN (04:53)
[2016-10-19] MEDS ORDERED: DEXTROSE 25 GM/50 ML PFS IV PRN (04:56)
[2016-10-19] MEDS ORDERED: GLUCAGON 1 MG VIAL SQ PRN (04:56)
[2016-10-19] MEDS ORDERED: ALBUTEROL 0.083% 3 ML NEB NEB PRN (04:56)
[2016-10-19] MEDS ORDERED: GLUCOSE (ORAL GEL) 15 GM TUBE PO PRN (04:56)
[2016-10-19] MEDS ORDERED: LATANOPROST 0.005% OPHTH SOLN 2.5 ML OU SCH ×2 (05:00→21:00)
[2016-10-19] MEDS ORDERED: AZELASTINE 137 MCG/SPRAY NASAL SPRAY NAS SCH (05:00)
[2016-10-19] MEDS ORDERED: FLUTICASONE/SALMETEROL 500/50 DISKUS INH SCH (06:00)
[2016-10-19 06:29] LABS: MPV 7.5 fL (7.4-10.4)
[2016-10-19] MEDS: METHYLPREDNISOLONE 125 MG/2 ML VIAL IV SCH ×3 (06:48→21:59)
[2016-10-19] MEDS: Levofloxacin 750 mg/150 ml D5W 750 MG/150 ML RTU IV SCH (06:48)
[2016-10-19] MEDS: PANTOPRAZOLE 40 MG TAB PO SCH ×3 (06:49→16:33)
[2016-10-19] MEDS ORDERED: MORPHINE 2 MG/ML INJECTION IV PRN (06:53)
[2016-10-19 06:57] VITALS: BMI 39.3
[2016-10-19 07:12] LABS: BLOOD UREA NITROGEN 16 MG/DL (9-20); CALC CORRECTED 9.4 MG/DL (8.4-10.2); CALCIUM 8.6 MG/DL (8.4-10.2); CALCULATED OSMOLALITY 270 MOs/Kg (270-290); CHLORIDE 104 mEq/L (98-107); GLUCOSE 109 MG/DL (70-99); SODIUM LEVEL 139 mEq/L (137-146); TOTAL PROTEIN 6.2 G/DL (6.3-8.2)
[2016-10-19] MEDS: REGULAR INSULIN 100 UNITS/ML - 3 ML VIAL SQ SCH ×5 (07:18→22:00)
[2016-10-19] MEDS ORDERED: Vaccine Screening Complete SCH (08:00)
[2016-10-19] MEDS ORDERED: Non-Formulary Medication ITEM (Rivaroxaban [Xarelto] 15 MG) PO SCH (09:00)
[2016-10-19] MEDS ORDERED: Non-Formulary Medication ITEM (Pregabalin [Lyrica] 75 MG) PO SCH (09:00)
[2016-10-19] MEDS ORDERED: RIVAROXABAN 10 MG TAB PO SCH (09:00)
[2016-10-19] MEDS ORDERED: NALOXEGOL OXALATE 25 MG PO SCH (09:00)
[2016-10-19] MEDS: IMIPENEM CILASTATIN 500 MG in D5W 100 ML IV SCH ×3 (09:07→19:37)
[2016-10-19] MEDS: AZELASTINE 137 MCG/SPRAY NASAL SPRAY NAS SCH (09:10)
[2016-10-19] MEDS: Albuterol/Ipratropium Neb 3 ML NEB NEB SCH ×3 (10:02→19:35)
[2016-10-19] MEDS: FLUTICASONE/SALMETEROL 500/50 DISKUS INH SCH ×2 (10:06→19:35)
[2016-10-19] MEDS: OXYCODONE (OxyCONTIN) 20 MG TAB PO SCH ×2 (10:24→20:46)
[2016-10-19] MEDS: ATORVASTATIN 40 MG TAB PO SCH (10:24)
[2016-10-19] MEDS: PREGABALIN 25 MG CAP PO SCH ×2 (10:24→20:46)
[2016-10-19] MEDS: PROBIOTIC BLEND TAB PO SCH ×2 (10:25→16:33)
[2016-10-19] MEDS: MAGNESIUM OXIDE 400 MG TAB PO SCH ×2 (10:25→16:33)
--- NOTE | 2016-10-19 11:48 | DIRPT ---
CLINICAL DATA: Left-sided weakness and history of hypertension and diabetes. EXAM: BILATERAL CAROTID DUPLEX ULTRASOUND TECHNIQUE: Barton scale imaging, color Doppler and duplex ultrasound were performed of bilateral carotid and vertebral arteries in the neck. COMPARISON: None. FINDINGS: Criteria: Quantification of carotid stenosis is based on velocity parameters that correlate the residual internal carotid diameter with NASCET-based stenosis levels, using the diameter of the distal internal carotid lumen as the denominator for stenosis measurement. The following velocity measurements were obtained: RIGHT ICA: 113/22 cm/sec CCA: 110/15 cm/sec SYSTOLIC ICA/CCA RATIO: 1.0 DIASTOLIC ICA/CCA RATIO: 1.5 ECA: 128 cm/sec LEFT ICA: 105/23 cm/sec CCA: 116/14 cm/sec SYSTOLIC ICA/CCA RATIO: 0.9 DIASTOLIC ICA/CCA RATIO: 1.7 ECA: 101 cm/sec RIGHT CAROTID ARTERY: There is a mild amount of calcified plaque at the level of the carotid bulb that extends into the origin of the right ICA. Velocities and waveforms are normal and estimated right ICA stenosis is less than 50%. RIGHT VERTEBRAL ARTERY: Antegrade flow with normal waveform and velocity. LEFT CAROTID ARTERY: There is a mild amount of calcified plaque at the level of the carotid bulb. No focal plaque is identified in the ICA. There is no evidence of ICA stenosis. LEFT VERTEBRAL ARTERY: The left vertebral artery is not identified by ultrasound. IMPRESSION: 1. Mild plaque at the level of the right carotid bulb and proximal right ICA. Estimated right ICA stenosis is less than 50%. 2. Mild plaque in the left carotid bulb. No evidence of left ICA plaque or stenosis. 3. The left vertebral artery is not identifiable by duplex ultrasound. The right vertebral artery demonstrates antegrade flow. Electronically Signed By: Shaheen Proctor M.D. On: 10/19/2016 11:46
--- NOTE | 2016-10-19 15:16 | DIRPT ---
CLINICAL DATA: LEFT arm and leg weakness. Hemoptysis. EXAM: MRI HEAD WITHOUT CONTRAST TECHNIQUE: Multiplanar, multiecho pulse sequences of the brain and surrounding structures were obtained without intravenous contrast. COMPARISON: CT head earlier today. MR head 03/21/2015. FINDINGS: No evidence for acute infarction, hemorrhage, mass lesion, or extra-axial fluid. Advanced global atrophy. Hydrocephalus ex vacuo. Moderately extensive white matter disease, likely chronic microvascular ischemic change. Large remote LEFT MCA territory infarct affecting the temporal and parietal lobes. Flow voids are maintained, with normal-appearing internal carotid arteries basilar artery. With the RIGHT vertebral dominant. Chronic hemorrhage/laminar necrosis affecting the old LEFT-sided infarct. New Calvarium intact. No sinus or mastoid disease. Chronic LEFT maxillary sinus disease. Extracranial soft tissues unremarkable. Compared with 2014, there has been progressive atrophy. IMPRESSION: Progressive and advanced global atrophy. Moderately extensive white matter disease. No acute intracranial findings. Large remote LEFT MCA territory infarct. Electronically Signed By: Christo Tatum M.D. On: 10/19/2016 15:13
[2016-10-19] MEDS ORDERED: FAMOTIDINE 20 MG TAB PO SCH (21:00)
[2016-10-20] MEDS ORDERED: INSULIN DETEMIR 100 UNITS/ML PEN SQ ONE (00:26)
[2016-10-20] MEDS ORDERED: INSULIN DETEMIR 100 UNITS/ML PEN SQ SCH ×2 (01:00→08:00)
[2016-10-20] MEDS: Albuterol/Ipratropium Neb 3 ML NEB NEB SCH ×2 (01:05→08:03)
[2016-10-20] MEDS: IMIPENEM CILASTATIN 500 MG in D5W 100 ML IV SCH ×2 (01:46→08:22)
[2016-10-20 05:11] LABS: MPV 8.2 fL (7.4-10.4)
[2016-10-20 05:29] LABS: BLOOD UREA NITROGEN 20 MG/DL (9-20); CALCIUM 9.1 MG/DL (8.4-10.2); CALCULATED OSMOLALITY 276 MOs/Kg (270-290); CHLORIDE 99 mEq/L (98-107); GLUCOSE 326 MG/DL (70-99); SODIUM LEVEL 135 mEq/L (137-146)
[2016-10-20] MEDS: REGULAR INSULIN 100 UNITS/ML - 3 ML VIAL SQ SCH ×2 (06:16→11:55)
[2016-10-20] MEDS: Levofloxacin 750 mg/150 ml D5W 750 MG/150 ML RTU IV SCH (06:16)
[2016-10-20] MEDS: PANTOPRAZOLE 40 MG TAB PO SCH (06:17)
[2016-10-20] MEDS: METHYLPREDNISOLONE 125 MG/2 ML VIAL IV SCH (06:17)
[2016-10-20 07:37] VITALS: BP 146/84; TEMP 97.4
[2016-10-20] MEDS: FLUTICASONE/SALMETEROL 500/50 DISKUS INH SCH (08:04)
[2016-10-20] MEDS: PREGABALIN 25 MG CAP PO SCH (08:23)
[2016-10-20] MEDS: AZELASTINE 137 MCG/SPRAY NASAL SPRAY NAS SCH (08:23)
[2016-10-20] MEDS: OXYCODONE (OxyCONTIN) 20 MG TAB PO SCH (08:23)
[2016-10-20] MEDS: PROBIOTIC BLEND TAB PO SCH (08:24)
[2016-10-20] MEDS: MAGNESIUM OXIDE 400 MG TAB PO SCH (08:24)
[2016-10-20] MEDS: ATORVASTATIN 40 MG TAB PO SCH (08:24)
[2016-10-20] MEDS ORDERED: RIVAROXABAN 10 MG TAB PO SCH (09:00)
--- NOTE | 2016-10-20 09:17 | PCM.DCS92 ---
- Final/Secondary Discharge Diagnosis (1) Aspiration pneumonia Acute J69.0 - PNEUMONITIS DUE TO INHALATION OF FOOD AND VOMIT Present on Admission: Yes Comment: Noted on CT of the chest. Plan: Cultures ordered. IV imipenem due to patient's penicillin allergy, he has been doing well on IV imipenem as well as IV Levaquin. Will discharge home today on IV Levaquin to complete a total 5 day course with probiotics. He is tolerating room air, has been ambulating well. (2) Anticoagulant long-term use Acute Z79.01 - GROUP HOME (CURRENT) USE OF ANTICOAGULANTS Plan/Goal/Comment: Had some hemoptysis at the time of admission, but he does get this frequently when he has pneumonia. Continuing his anticoagulation. Hemoglobin has been stable. Hemodynamics stable. (3) CVA (cerebral vascular accident) Acute I63.9 - CEREBRAL INFARCTION, UNSPECIFIED Present on Admission: Yes Comment: Patient admitted to the hospital with left-sided weakness. Concern for CVA. She does have a history of prior stroke. Plan: CVA order set was used. MRI head and Ultrasound of carotids without any acute findings. Patient does have prior left MCA territory stroke seen on MRI. Patient was seen by speech, physical therapy. No therapy needs. Patient already on Xarelto, no aspirin. (4) Hemoptysis Acute R04.2 - HEMOPTYSIS Present on Admission: Yes Comment: Started having hemoptysis, which per records is typical of his flare ups and episodes of pneumonia. Has not had any further episodes. Plan: Monitor for further episodes. Consider holding Xarelto if he has further episodes. 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 Plan: Recheck labs. (6) Left-sided weakness Acute M62.81 - MUSCLE WEAKNESS (GENERALIZED) Present on Admission: Yes Comment: Left leg weakness is fairly severe and the left arm weakness is also present. Suspect that he has a stroke. Patient is very concerned about whether or not he will regain strength in his left arm and leg. Plan: Physical and occupational therapy. Discharge Disposition: Home Discharge Condition: Stable Fuctional Discharge Status: Independent Physician Follow up/Referrals: Jyoti Ortiz MD [Primary Care Provider] - One Week New Prescriptions: Levofloxacin [Levaquin] 750 mg PO DAILY #4 tablet Prednisone [Sterapred Ds] 10 mg PO DIR #21 pack Discharge Home Medication List Albuterol Sulfate [Ventolin Hfa] 1 - 2 puff INH Q4H PRN 04/29/14 [History Confirmed 10/18/16 Last Taken 10/17/16] Atorvastatin [Lipitor 40 mg Tablet] 40 mg PO DAILY 04/29/14 [History Confirmed 10/18/16 Last Taken 10/17/16] Diltiazem HCl [Cardizem] 30 mg PO BID 04/29/14 [History Confirmed 10/18/16 Last Taken 10/17/16] Fluticasone/Salmeterol [Advair 500-50 Diskus] 1 inh INH BID 04/29/14 [History Confirmed 10/18/16 Last Taken 10/17/16] Insulin Aspart [Novolog Flexpen] 0 unit SQ .INSULIN PUMP 04/29/14 [History Confirmed 10/18/16 Last Taken 10/17/16] Isosorbide Mononitrate [Imdur] 60 mg PO DAILY 04/29/14 [History Confirmed Last Taken 10/17/16] Magnesium Oxide [Mag-Ox] 800 mg PO BID 04/29/14 [History Confirmed 10/18/16 Last Taken 10/17/16] Pantoprazole Sodium [Protonix] 40 mg PO BID 04/29/14 [History Confirmed Last Taken 10/17/16] Famotidine [Pepcid] 20 mg PO QHS 05/21/16 [History Confirmed 10/18/16 Last Taken 10/17/16] Latanoprost [Xalatan] 1 drop OU QHS 05/21/16 [History Confirmed 10/18/16 Last Taken 10/17/16] Naloxegol Oxalate [Movantik] 25 mg PO DAILY 05/21/16 [History Confirmed Last Taken 10/17/16] HydrALAZINE (Cardiovascular) [Apresoline] 50 mg PO TID #60 05/25/16 [Rx Confirmed 10/18/16 Last Taken 10/17/16] Losartan Potassium [Cozaar] 100 mg PO DAILY #30 tab 05/25/16 [Rx Confirmed 10/18 Last Taken 10/17/16] Oxycodone (OxyCONTIN) Ext Rel [Oxycontin] 20 mg PO BID #60 05/25/16 [Rx Confirmed 10/18/16 Last Taken 10/18/16] POTASSIUM CHLORIDE Tablet [K-DUR 20 mEq Tablet*] 20 meq PO TID #100 tab.er.prt 05/25/16 [Rx Confirmed 10/18/16 Last Taken 10/17/16] Azelastine HCl [Astelin] 1 - 2 spray ROC DAILY 10/18/16 [History Confirmed 10/18 Last Taken 10/17/16] Mckenney Unknown Dose 1 tab PO .SEE COMMENTS 10/18/16 [History Confirmed 10/18/16 Last Taken 10/18/16] Pregabalin [Lyrica] 75 mg PO BID 10/18/16 [History Confirmed 10/18/16 Last Taken 10/17/16] Rivaroxaban [Xarelto] 15 mg PO DAILY 10/18/16 [History Confirmed 10/18/16 Last Taken 10/18/16] Torsemide [Demadex] 20 mg PO QID 10/18/16 [History Confirmed 10/18/16 Last Taken 10/17/16] Levofloxacin [Levaquin] 750 mg PO DAILY #4 tablet 10/20/16 [Rx Last Taken Unknown] Prednisone [Sterapred Ds] 10 mg PO DIR #21 pack 10/20/16 [Rx Last Taken Unknown] Probiotic Blend [Sandra Q] 1 tab PO BID #10 10/20/16 [Rx Confirmed 10/18/16 Last Taken 10/17/16] O2 Device: Room Air Diet at Discharge: As Tolerated Activity: No Restrictions - DC Summary Notes HPI/Notes: This is a pleasant 65-year-old male with a history of prior CVA, was admitted to the hospital with hemoptysis, left-sided weakness and concern for new CVA. 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 He improved very quickly, in fact quicker than expected during the hospital stay. Stroke workup was negative for any new infarction. His pulmonary status is improved to the point that he is now tolerating room air. He was seen by speech and physical therapy and is deemed ready for discharge home without any therapy needs. He will be discharging home later this afternoon if he continues to do well. Please see the hospital problems and discharge problems above for details of the hospital course including diagnostics and treatment. The plan of care including medications, prognosis, follow-up including alarm symptoms for which medical care should be sought were reviewed with the patient and any available family members/caretakers. The patient is agreeable to discharge today, and all questions were answered by me to their satisfaction. Hospital Course Note:: Discharge summary on patient named JUNAID SORIANO admitted to [facility] on 10/19/16 by Romulo Johns MD. Date of discharge is []. - Physical Exam Vital Signs: Last Vital Signs Temp 97.4 F L 10/20/16 07:37 Pulse 82 10/20/16 07:37 Resp 20 10/20/16 07:37 BP 146/84 10/20/16 07:37 Pulse Ox 96 10/20/16 08:00 Oxygen Pulse Oxygen Saturation 96 O2 Device Room Air Oxygen Flow Rate 2 Fraction of Inspired Oxygen ( FIO2) Constitutional: No apparent distress, Alert Oriented to: Time, Person, Place Exam: Resting comfortably, feels like he is back to his baseline. - HEENT Head: Normal Eye: Normal Oropharynx: Normal Nose: No Symptoms Reported - Respiratory/Cardiovascular Respiratory: Diminished. negative: Tachypnea Cardiovascular: Normal - GI Auscultation: Normal Palpation: Normal Tenderness: Non tender Velasquez's Sign: Negative - Musculoskeletal Back: Normal Extremities: Normal. negative: Pedal Edema, Pedal Pulse - Integumentary Skin: Normal, Warm, Dry Lymphatics: Normal - Neurologic Memory Impaired: Normal Mood Description: Anxious Thought: Coherent
[2016-10-20 10:12] VITALS: PULSE 98
== END 2016-10-20 12:20 | disposition home or self-care (01) | DRG 177 ==
LOC: ED 21:21 → PCU 10-19 02:44
PROVIDERS: ADMIT Internal Medicine; ATTEND Internal Medicine
PROC: 5A09357 Assistance with Respiratory Ventilation, Less than 24 Consecutive Hours, Continuous Positive Airway Pressure (ICD-10-PCS; principal; 2016-10-19)
DX: J69.0 Pneumonitis due to inhalation of food and vomit (principal); I63.9 Cerebral infarction, unspecified; R04.2 Hemoptysis; G81.94 Hemiplegia, unspecified affecting left nondominant side; J84.89 Other specified interstitial pulmonary diseases; I48.2 Chronic atrial fibrillation; G47.33 Obstructive sleep apnea (adult) (pediatric); E11.42 Type 2 diabetes mellitus with diabetic polyneuropathy; I12.9 Hypertensive chronic kidney disease with stage 1 through stage 4 chronic kidney disease, or unspecified chronic kidney disease; E11.22 Type 2 diabetes mellitus with diabetic chronic kidney disease; Z79.4 Long term (current) use of insulin; Z99.81 Dependence on supplemental oxygen; Z79.01 Long term (current) use of anticoagulants; E80.6 Other disorders of bilirubin metabolism; I67.9 Cerebrovascular disease, unspecified; J44.9 Chronic obstructive pulmonary disease, unspecified; Z86.73 Personal history of transient ischemic attack (TIA), and cerebral infarction without residual deficits; N18.3 Chronic kidney disease, stage 3 (moderate); E03.9 Hypothyroidism, unspecified; Z87.891 Personal history of nicotine dependence; G89.29 Other chronic pain; Z79.52 Long term (current) use of systemic steroids; J45.909 Unspecified asthma, uncomplicated; Z79.899 Other long term (current) drug therapy; Z79.891 Long term (current) use of opiate analgesic
CPT/HCPCS: 36415; 36556; 70450; 70551; 71010; 71260; 74177; 80048; 80053; 80061; 81001; 82043; 82962; 83036; 83605; 83690; 84484; 85025; 85027; 85610; 85730; 87040; 87804; 93005; 93880; 94640; 96361; 96365; 96372; 96375; 99284; A9698; J0743; J1956; J2270; J2930; J3010; J3490; J7060; J7620